=== PATIENT | male | born 1980 | race Two or more races ===

== ENCOUNTER 2019-06-03 18:20 | Emergency (ER) | payer BC, OTHER ==
[~2019-06-03] VITALS: Ht 162.6 cm; Wt 106.6 kg
[2019-06-03 19:12] LABS: Urine Bacteria FEW /hpf (None Seen); Urine Blood Negative /uL (Negative); Urine Specific Gravity 1.036 (1.001-1.035); Urine WBC 1 /hpf (0 - 3)
[2019-06-03 19:34] LABS: Basophils # (auto) 0 uL; Basophils % (auto) 0.6 % (0.0-2.0); Eosinophils # (auto) 0.1 uL; Eosinophils % (auto) 1.2 % (0.0-7.0); Hematocrit 45.9 % (41.0-53.0); Hemoglobin 15.8 g/dL (13.5-17.5); Lymphocytes # (auto) 1.8 uL; Lymphocytes % (auto) 24.6 % (10.0-50.0); Mean Corpuscular Hemoglobin 27.9 pg (28.0-32.0); Mean Corpuscular Hgb Conc. 34.3 g/dL (32.0-36.0); Mean Corpuscular Volume 81.2 fL (80.0-100.0); Monocytes # (auto) 0.5 uL; Monocytes % (auto) 6.6 % (0.0-12.0); Nucleated Red Blood Cells % 0.2 %; Platelet Count (auto) 194 10^3/uL (140-450); Red Blood Cells 5.66 10^6/uL (4.5-5.90); Red Cell Distribution Width 13.4 % (11.8-14.3); White Blood Cell 7.4 10^3/uL (4.4-10.8)
[2019-06-03 20:09] LABS: Albumin 3.5 g/dL (3.4-5.0); BUN/Creatinine Ratio 14.2; Calcium 8.5 mg/dL (8.5-10.1); Potassium 3.7 mmol/L (3.5-5.1)
[2019-06-03 20:16] LABS: Bilirubin, Total 0.3 mg/dL (0.2-1.0); Total Protein 7.1 g/dL (6.4-8.2)
[2019-06-04 00:42] VITALS: BP 123/87
[2019-06-04] MEDS ORDERED: SODIUM CHLORIDE 0.9% 1,000 ML IV SCH (03:00)
[2019-06-04] MEDS ORDERED: DEXTROSE (50%) 50ML SYRG IV PRN (03:00)
[2019-06-04] MEDS ORDERED: ACETAMINOPHEN 325 MG TAB PO PRN (03:00)
[2019-06-04] MEDS ORDERED: TEMAZEPAM 15 MG CAP PO PRN (03:00)
[2019-06-04] MEDS ORDERED: ONDANSETRON HCL 4 MG/2 ML VIAL IV PRN (03:00)
[2019-06-04] MEDS ORDERED: ACCU-CHEK COMFORT CURVE STRIP VI SCH (04:00)
[2019-06-04] MEDS ORDERED: InsuLIN REG 1unit/0.01ml Soln (100units/ml) SC SCH (04:00)
[2019-06-04 04:02] LABS: BUN/Creatinine Ratio 15.3; Calcium 8.4 mg/dL (8.5-10.1); Potassium 4.3 mmol/L (3.5-5.1)
[2019-06-04] MEDS ORDERED: LISINOPRIL 5 MG TAB PO SCH (10:00)
[2019-06-04] MEDS ORDERED: FAMOTIDINE 20 MG TAB PO SCH (10:00)
== END 2019-06-04 04:20 | disposition left against medical advice (07) ==
LOC: ER 18:20 → UNDOADMIN 18:21 → OVERFLOW 18:21 → ER 06-04 04:20
DX: E10.10 Type 1 diabetes mellitus with ketoacidosis without coma (principal); R42 Dizziness and giddiness; I10 Essential (primary) hypertension; Z53.29 Procedure and treatment not carried out because of patient's decision for other reasons
CPT/HCPCS: 36415; 80048; 80053; 81001; 82010; 82962; 83036; 85025; 96360; 96372; 99283; J1815; J7030

== ENCOUNTER 2020-12-08 09:39 | Inpatient (IN) | payer BC ==
[~2020-12-08] VITALS: Ht 162.6 cm; Wt 98.0 kg
[2020-12-08] MEDS ORDERED: DexAMETHasone SOD PHOS 10MG/1ML VIAL INJ IV ONE (10:00)
[2020-12-08] MEDS ORDERED: AZITHROMYCIN 500MG/ 250ML 250 ML IV ONE (10:00)
[2020-12-08] MEDS ORDERED: cefTRIAXone 1GM/50ML D5W 50 ML IV ONE (10:00)
[2020-12-08 11:12] LABS: Basophils # (auto) 0 10 ^3/uL (0-0.2); Eosinophils # (auto) 0 10 ^3/uL (0-0.8); Hemoglobin 17.4 g/dL (13.5-17.5); Mean Corpuscular Volume 78.5 fL (80.0-100.0)
[2020-12-08 11:14] LABS: Basophils % (auto) 0.2 % (0.0-2.0); Hematocrit 50.7 % (41.0-53.0); Lymphocytes # (auto) 1.2 10 ^3/uL (0.4-5.4); Lymphocytes % (auto) 16.1 % (10.0-50.0); Mean Corpuscular Hemoglobin 26.9 pg (28.0-32.0); Mean Corpuscular Hgb Conc. 34.3 g/dL (32.0-36.0); Monocytes % (auto) 14.1 % (0.0-12.0); Neutrophils % (auto) 69.6 % (37.0-80.0); Nucleated Red Blood Cells % 0.5 %; Red Blood Cells 6.46 10^6/uL (4.5-5.90); Red Cell Distribution Width 13.9 % (11.8-14.3); White Blood Cell 7.2 10^3/uL (4.4-10.8)
[2020-12-08 11:27] LABS: Albumin 3.3 g/dL (3.4-5.0); Anion Gap 5 (5-15); Blood Urea Nitrogen 11 mg/dL (7-18); Calcium 8.9 mg/dL (8.5-10.1); Carbon Dioxide 31 mmol/L (21-32); Chloride 97 mmol/L (98-107); Glucose 134 mg/dL (74-106); Potassium 3.6 mmol/L (3.5-5.1); Sodium 133 mmol/L (136-145)
[2020-12-08] MEDS ORDERED: diphenhdrAMINE HCL 50 MG/1 ML VL IV PRN (11:30)
[2020-12-08] MEDS ORDERED: REMDESIVIR PER PHARMACY 0 ML IV SCH ×2 (11:30→21:30)
[2020-12-08] MEDS ORDERED: MORPHINE SULFATE INJECTION 2 MG/2 ML SYRG IV PRN (11:30)
[2020-12-08] MEDS ORDERED: NITROGLYCERIN 0.4 MG SL TAB SL PRN (11:30)
[2020-12-08 11:36] LABS: Alanine Aminotransferase 132 U/L (16-61); Alkaline Phosphatase 99 U/L (45-117); Aspartate Aminotransferase 81 U/L (15-37); BUN/Creatinine Ratio 13.9; Bilirubin, Total 0.7 mg/dL (0.2-1.0); GFR African American 139 mL/min; GFR Non-African American 115 mL/min; Total Protein 8.6 g/dL (6.4-8.2)
[2020-12-08 12:00] VITALS: BP 124/84
[2020-12-08] MEDS ORDERED: LACTULOSE 20Gm/30ML SOLN PO PRN (12:00)
[2020-12-08] MEDS ORDERED: ALBUTEROL SULF 2.5 MG/0.5ML(0.5%) NEB SOLN NEB PRN (12:00)
[2020-12-08] MEDS: InsuLIN REG 1unit/0.01ml Soln (100units/ml) SC SCH ×3 (12:00→20:30)
[2020-12-08] MEDS ORDERED: DEXTROSE (50%) 50ML SYRG IV PRN (12:00)
[2020-12-08] MEDS: ACCU-CHEK COMFORT CURVE STRIP VI SCH ×3 (12:00→20:23)
[2020-12-08] MEDS ORDERED: ACETAMINOPHEN 500 MG TAB PO PRN (12:00)
[2020-12-08] MEDS ORDERED: traMADol HCL 50 MG TAB PO PRN (12:00)
[2020-12-08] MEDS ORDERED: PROMETHAZINE HCL 25 MG/ML 1ML IV PRN (12:00)
[2020-12-08] MEDS: ASCORBIC ACID 1,000 MG TAB PO SCH (12:17)
[2020-12-08] MEDS: ZINC SULFATE 220mg CAP or TAB PO SCH (13:18)
[2020-12-08] MEDS: CHOLECALCIFEROL (VITD3) 2,000 UNIT CAP/TAB PO SCH (13:18)
[2020-12-08 14:52] VITALS: BP 128/89
[2020-12-08] MEDS ORDERED: IVERMECTIN 3 MG TAB PO ONE (15:00)
[2020-12-08 16:43] VITALS: BP 120/79
[2020-12-08] MEDS: IPRATROPIUM BROMIDE HFA AER IN SCH ×3 (19:22→22:54)
[2020-12-08 22:00] VITALS: BP 134/89
[2020-12-08] MEDS ORDERED: TEMAZEPAM 15 MG CAP PO PRN (22:00)
[2020-12-08] MEDS: FLORASTOR (S. BOULARDII) 250 MG CAP PO SCH (22:42)
[2020-12-08] MEDS: DOXYCYCLINE 100MG/250ML 250 ML IV SCH (22:42)
[2020-12-08] MEDS: ENOXAPARIN SOD 40 MG/0.4 ML SYRINGE SC SCH (22:42)
[2020-12-08] MEDS: ALBUTEROL SULF HFA 90MCG INH 200DOSE IN PRN (22:54)
[2020-12-08] MEDS: BUDESONIDE (INHALATION) 180 MCG IH IN SCH (22:55)
[2020-12-09] VITALS (8 sets, daily range): BP systolic 108–133; BP diastolic 69–91
[2020-12-09] MEDS: ACCU-CHEK COMFORT CURVE STRIP VI SCH ×7 (00:28→23:59)
[2020-12-09] MEDS: InsuLIN REG 1unit/0.01ml Soln (100units/ml) SC SCH ×6 (00:31→21:13)
[2020-12-09] MEDS: IVERMECTIN 3 MG TAB PO SCH (06:26)
[2020-12-09 07:03] LABS: Hematocrit 44.2 % (41.0-53.0); Hemoglobin 15.7 g/dL (13.5-17.5); Mean Corpuscular Hemoglobin 27.8 pg (28.0-32.0); Mean Corpuscular Hgb Conc. 35.5 g/dL (32.0-36.0); Mean Corpuscular Volume 78.1 fL (80.0-100.0); Red Blood Cells 5.66 10^6/uL (4.5-5.90); White Blood Cell 4.3 10^3/uL (4.4-10.8)
[2020-12-09 07:07] LABS: Albumin 2.9 g/dL (3.4-5.0); Potassium 3.5 mmol/L (3.5-5.1)
[2020-12-09 07:11] LABS: BUN/Creatinine Ratio 23.7; Bilirubin, Total 0.7 mg/dL (0.2-1.0); Total Protein 7.8 g/dL (6.4-8.2)
[2020-12-09 07:20] LABS: Basophils % (manual) 0 (0.0-2.0); Blast Cells 0; Eosinophils % (manual) 0 (0-7); Metamyelocytes % 0; Myelocytes % 0; Promyelocytes % 0
[2020-12-09] MEDS: ALBUTEROL SULF HFA 90MCG INH 200DOSE IN PRN ×2 (07:24→19:18)
[2020-12-09] MEDS: IPRATROPIUM BROMIDE HFA AER IN SCH ×4 (07:25→22:42)
[2020-12-09] MEDS: BUDESONIDE (INHALATION) 180 MCG IH IN SCH ×2 (07:25→19:18)
[2020-12-09] MEDS: cefTRIAXone 1GM/50ML D5W 50 ML IV SCH (08:46)
[2020-12-09] MEDS: DexAMETHasone SOD PHOS 10MG/1ML VIAL INJ IV SCH (10:13)
[2020-12-09] MEDS: ASCORBIC ACID 1,000 MG TAB PO SCH (10:14)
[2020-12-09] MEDS: ZINC SULFATE 220mg CAP or TAB PO SCH (10:14)
[2020-12-09] MEDS: DOXYCYCLINE 100MG/250ML 250 ML IV SCH ×2 (10:14→21:17)
[2020-12-09] MEDS: FLORASTOR (S. BOULARDII) 250 MG CAP PO SCH ×2 (10:14→21:18)
[2020-12-09] MEDS: CHOLECALCIFEROL (VITD3) 2,000 UNIT CAP/TAB PO SCH (10:14)
[2020-12-09] MEDS: ENOXAPARIN SOD 40 MG/0.4 ML SYRINGE SC SCH ×2 (10:15→21:18)
[2020-12-09 10:34] LABS: Band Neutrophils % (manual) 6; Lymphocytes % (manual) 11 (10.0-50.0)
[2020-12-09 10:35] LABS: Monocytes % (manual) 20 (0-12); Reactive Lymphocytes 1
[2020-12-09] MEDS ORDERED: REMDESIVIR 200 MG in NS 210ml LOADING DOSE ADULT IV ONE (12:00)
[2020-12-10] MEDS: InsuLIN REG 1unit/0.01ml Soln (100units/ml) SC SCH ×6 (00:01→21:29)
[2020-12-10] MEDS: ACCU-CHEK COMFORT CURVE STRIP VI SCH ×5 (03:59→21:05)
[2020-12-10 05:00] VITALS: BP 115/72
[2020-12-10] MEDS: IVERMECTIN 3 MG TAB PO SCH (06:23)
[2020-12-10] MEDS: IPRATROPIUM BROMIDE HFA AER IN SCH ×4 (06:58→22:14)
[2020-12-10] MEDS: BUDESONIDE (INHALATION) 180 MCG IH IN SCH ×2 (06:59→22:14)
[2020-12-10] MEDS: ALBUTEROL SULF HFA 90MCG INH 200DOSE IN PRN (06:59)
[2020-12-10 07:03] LABS: Albumin 2.8 g/dL (3.4-5.0); Calcium 8.6 mg/dL (8.5-10.1); Potassium 3.3 mmol/L (3.5-5.1)
[2020-12-10 07:12] LABS: BUN/Creatinine Ratio 25.8; Bilirubin, Total 0.4 mg/dL (0.2-1.0); Total Protein 7.1 g/dL (6.4-8.2)
[2020-12-10] MEDS: cefTRIAXone 1GM/50ML D5W 50 ML IV SCH (09:00)
[2020-12-10 09:04] VITALS: BP 112/70
[2020-12-10] MEDS: DexAMETHasone SOD PHOS 10MG/1ML VIAL INJ IV SCH (10:00)
[2020-12-10] MEDS: ENOXAPARIN SOD 40 MG/0.4 ML SYRINGE SC SCH ×2 (10:00→20:44)
[2020-12-10] MEDS: DOXYCYCLINE 100MG/250ML 250 ML IV SCH ×2 (10:00→20:45)
[2020-12-10] MEDS: ASCORBIC ACID 1,000 MG TAB PO SCH (10:00)
[2020-12-10] MEDS: ZINC SULFATE 220mg CAP or TAB PO SCH (10:00)
[2020-12-10] MEDS: FLORASTOR (S. BOULARDII) 250 MG CAP PO SCH ×2 (10:00→20:44)
[2020-12-10] MEDS: CHOLECALCIFEROL (VITD3) 2,000 UNIT CAP/TAB PO SCH (10:00)
[2020-12-10 12:23] VITALS: BP 120/85
[2020-12-10] MEDS: REMDESIVIR 100mg 100 MG in SODIUM CHL 0.9% 230 ML IV SCH (15:00)
[2020-12-10 17:19] VITALS: BP 114/72
[2020-12-10] MEDS ORDERED: POTASSIUM CHL 10 Meq TABLET PO ONE (19:15)
[2020-12-10 22:00] VITALS: BP 116/64
[2020-12-11] MEDS: ACCU-CHEK COMFORT CURVE STRIP VI SCH ×6 (00:19→21:20)
[2020-12-11] MEDS: InsuLIN REG 1unit/0.01ml Soln (100units/ml) SC SCH ×6 (00:23→21:50)
[2020-12-11 03:50] VITALS: BP 116/64
[2020-12-11 05:00] VITALS: BP 121/83
[2020-12-11 06:14] LABS: Basophils # (auto) 0 10 ^3/uL (0-0.2); Basophils % (auto) 0.1 % (0.0-2.0); Eosinophils # (auto) 0 10 ^3/uL (0-0.8); Eosinophils % (auto) 0.1 % (0.0-7.0); Hematocrit 45.8 % (41.0-53.0); Hemoglobin 15.8 g/dL (13.5-17.5); Lymphocytes # (auto) 1.9 10 ^3/uL (0.4-5.4); Lymphocytes % (auto) 19.9 % (10.0-50.0); Mean Corpuscular Hgb Conc. 34.4 g/dL (32.0-36.0); Mean Corpuscular Volume 78.5 fL (80.0-100.0); Monocytes # (auto) 1.5 10 ^3/uL (0-1.3); Neutrophils # (auto) 6.3 10 ^3/uL (1.6-8.6); Neutrophils % (auto) 64.9 % (37.0-80.0); Nucleated Red Blood Cells % 0.1 %; Red Blood Cells 5.84 10^6/uL (4.5-5.90); Red Cell Distribution Width 13.8 % (11.8-14.3); White Blood Cell 9.7 10^3/uL (4.4-10.8)
[2020-12-11] MEDS: ALBUTEROL SULF HFA 90MCG INH 200DOSE IN PRN ×2 (06:17→19:43)
[2020-12-11] MEDS: BUDESONIDE (INHALATION) 180 MCG IH IN SCH ×2 (06:17→19:43)
[2020-12-11] MEDS: IPRATROPIUM BROMIDE HFA AER IN SCH ×4 (06:17→22:41)
[2020-12-11 06:29] LABS: Potassium 3.8 mmol/L (3.5-5.1)
[2020-12-11] MEDS: IVERMECTIN 3 MG TAB PO SCH (06:31)
[2020-12-11 06:41] LABS: Albumin 2.7 g/dL (3.4-5.0); BUN/Creatinine Ratio 25.8; Bilirubin, Total 0.4 mg/dL (0.2-1.0); Calcium 8.7 mg/dL (8.5-10.1)
[2020-12-11 08:32] VITALS: BP 117/71
[2020-12-11] MEDS: cefTRIAXone 1GM/50ML D5W 50 ML IV SCH (09:21)
[2020-12-11] MEDS: DexAMETHasone SOD PHOS 10MG/1ML VIAL INJ IV SCH (09:21)
[2020-12-11] MEDS: DOXYCYCLINE 100MG/250ML 250 ML IV SCH ×2 (09:21→21:19)
[2020-12-11] MEDS: ZINC SULFATE 220mg CAP or TAB PO SCH (09:22)
[2020-12-11] MEDS: FLORASTOR (S. BOULARDII) 250 MG CAP PO SCH ×2 (09:22→21:19)
[2020-12-11] MEDS: ASCORBIC ACID 1,000 MG TAB PO SCH (09:22)
[2020-12-11] MEDS: CHOLECALCIFEROL (VITD3) 2,000 UNIT CAP/TAB PO SCH (09:22)
[2020-12-11] MEDS: ENOXAPARIN SOD 40 MG/0.4 ML SYRINGE SC SCH ×2 (09:24→21:20)
[2020-12-11] MEDS ORDERED: FUROSEMIDE 20 MG/2 ML VIAL IV ONE (12:30)
[2020-12-11] MEDS ORDERED: DEXTROSE (50%) 50ML SYRG IV PRN (12:30)
[2020-12-11] MEDS ORDERED: POTASSIUM CHL 10 Meq TABLET PO ONE (12:30)
[2020-12-11 13:00] VITALS: BP 134/52
[2020-12-11] MEDS: REMDESIVIR 100mg 100 MG in SODIUM CHL 0.9% 230 ML IV SCH (15:25)
[2020-12-11 17:00] VITALS: BP 128/72
[2020-12-11 22:00] VITALS: BP 116/87
[2020-12-12 06:51] LABS: INR 1.18 (0.9-1.15)
[2020-12-12] MEDS: IVERMECTIN 3 MG TAB PO SCH (07:00)
[2020-12-12] MEDS: ACCU-CHEK COMFORT CURVE STRIP VI SCH ×4 (07:00→21:54)
[2020-12-12] MEDS: InsuLIN REG 1unit/0.01ml Soln (100units/ml) SC SCH ×4 (07:01→21:55)
[2020-12-12] MEDS: IPRATROPIUM BROMIDE HFA AER IN SCH ×4 (07:20→23:16)
[2020-12-12] MEDS: BUDESONIDE (INHALATION) 180 MCG IH IN SCH ×2 (07:20→19:37)
[2020-12-12 09:00] VITALS: BP 106/70
[2020-12-12] MEDS: DexAMETHasone SOD PHOS 10MG/1ML VIAL INJ IV SCH (09:38)
[2020-12-12] MEDS: FLORASTOR (S. BOULARDII) 250 MG CAP PO SCH ×2 (09:38→21:53)
[2020-12-12] MEDS: DOXYCYCLINE 100MG/250ML 250 ML IV SCH ×2 (09:38→21:53)
[2020-12-12] MEDS: ZINC SULFATE 220mg CAP or TAB PO SCH (09:38)
[2020-12-12] MEDS: ASCORBIC ACID 1,000 MG TAB PO SCH (09:39)
[2020-12-12] MEDS: CHOLECALCIFEROL (VITD3) 2,000 UNIT CAP/TAB PO SCH (09:39)
[2020-12-12] MEDS: FUROSEMIDE 20 MG/2 ML VIAL IV SCH (09:39)
[2020-12-12] MEDS: ENOXAPARIN SOD 40 MG/0.4 ML SYRINGE SC SCH ×2 (09:39→21:54)
[2020-12-12] MEDS: POTASSIUM CHL 10 Meq TABLET PO SCH (09:44)
[2020-12-12 13:00] VITALS: BP 113/81
[2020-12-12] MEDS: REMDESIVIR 100mg 100 MG in SODIUM CHL 0.9% 230 ML IV SCH (15:24)
[2020-12-12 17:00] VITALS: BP 120/78
[2020-12-12] MEDS: ALBUTEROL SULF HFA 90MCG INH 200DOSE IN PRN (19:37)
[2020-12-12 22:00] VITALS: BP 110/73
[2020-12-13 05:00] VITALS: BP 129/83
[2020-12-13] MEDS: ACCU-CHEK COMFORT CURVE STRIP VI SCH ×3 (06:30→17:00)
[2020-12-13] MEDS: IVERMECTIN 3 MG TAB PO SCH (06:30)
[2020-12-13] MEDS: InsuLIN REG 1unit/0.01ml Soln (100units/ml) SC SCH ×3 (06:35→17:00)
[2020-12-13 09:00] VITALS: BP 117/80
[2020-12-13] MEDS: DexAMETHasone SOD PHOS 10MG/1ML VIAL INJ IV SCH (09:40)
[2020-12-13] MEDS: ZINC SULFATE 220mg CAP or TAB PO SCH (09:40)
[2020-12-13] MEDS: DOXYCYCLINE 100MG/250ML 250 ML IV SCH (09:40)
[2020-12-13] MEDS: FUROSEMIDE 20 MG/2 ML VIAL IV SCH (09:40)
[2020-12-13] MEDS: ENOXAPARIN SOD 40 MG/0.4 ML SYRINGE SC SCH (09:41)
[2020-12-13] MEDS: FLORASTOR (S. BOULARDII) 250 MG CAP PO SCH (09:41)
[2020-12-13] MEDS: ASCORBIC ACID 1,000 MG TAB PO SCH (09:41)
[2020-12-13] MEDS: CHOLECALCIFEROL (VITD3) 2,000 UNIT CAP/TAB PO SCH (09:41)
[2020-12-13] MEDS: POTASSIUM CHL 10 Meq TABLET PO SCH (09:41)
[2020-12-13] MEDS: BUDESONIDE (INHALATION) 180 MCG IH IN SCH (09:47)
[2020-12-13] MEDS: ALBUTEROL SULF HFA 90MCG INH 200DOSE IN PRN (09:47)
[2020-12-13] MEDS: IPRATROPIUM BROMIDE HFA AER IN SCH ×2 (09:47→11:47)
[2020-12-13 13:00] VITALS: BP 134/89
[2020-12-13] MEDS ORDERED: ASPI-378 PO (13:36)
[2020-12-13] MEDS ORDERED: DOXY-286 PO (13:36)
[2020-12-13] MEDS ORDERED: ZINC220T6 PO (13:36)
[2020-12-13] MEDS ORDERED: BUDE2SUS3 IN (13:36)
[2020-12-13] MEDS ORDERED: FAMO20TA10 PO (13:36)
[2020-12-13] MEDS ORDERED: CHOL500033 PO (13:36)
[2020-12-13] MEDS ORDERED: ALBUAER3 IN (13:36)
[2020-12-13] MEDS ORDERED: DEX4T PO (13:36)
[2020-12-13] MEDS ORDERED: ASCO10003 PO (13:36)
[2020-12-13 14:55] VITALS: BP 134/89
[2020-12-13] MEDS: REMDESIVIR 100mg 100 MG in SODIUM CHL 0.9% 230 ML IV SCH (15:00)
[2020-12-13 17:00] VITALS: BP 135/90
== END 2020-12-13 18:08 | disposition home or self-care (01) | DRG 871 ==
LOC: ER 09:39 → TELE 11:27 → TELE-EAST 12:36
PROVIDERS: ADMIT Internal Medicine; ATTEND Internal Medicine
PROC: XW033E5 Introduction of Remdesivir Anti-infective into Peripheral Vein, Percutaneous Approach, New Technology Group 5 (ICD-10-PCS; 2020-12-08)
PROC: XW13325 Transfusion of Convalescent Plasma (Nonautologous) into Peripheral Vein, Percutaneous Approach, New Technology Group 5 (ICD-10-PCS; principal; 2020-12-09)
DX: A41.89 Other specified sepsis (principal); U07.1 COVID-19; J96.01 Acute respiratory failure with hypoxia; J12.82 Pneumonia due to coronavirus disease 2019; Z68.41 Body mass index [BMI] 40.0-44.9, adult; E11.9 Type 2 diabetes mellitus without complications; E11.65 Type 2 diabetes mellitus with hyperglycemia; D89.839 Cytokine release syndrome, grade unspecified; E66.01 Morbid (severe) obesity due to excess calories; Z83.3 Family history of diabetes mellitus
CPT/HCPCS: 36415; 36430; 36600; 71045; 76705; 80053; 82306; 82728; 82805; 82962; 83036; 83605; 83615; 83880; 84484; 85007; 85025; 85027; 85379; 85610; 86141; 86850; 86900; 86901; 87426; 93005; 94640; 96365; 96367; 96375; 99291; G0378; J0696; J1100; J1815; J3490